=== PATIENT | female | born 1980 | race Caucasian/White ===

== ENCOUNTER 2017-09-05 12:38 | Emergency (ER) | payer OTHER, MEDICAID ==
[~2017-09-05] VITALS: Ht 165.1 cm; Wt 127.0 kg
[~2017-09-05 12:38] MED LIST: ACETAMINOPHEN-120 ML PO; ACETAMINOPHEN325 M1 PO; ALBUTEROL INH; ALBUTEROL INHAL17 GM IH; AZITHROMYCIN 2250 MG PO; CIPROFLOXACIN500 M1 PO; CLARITIN10 M2 PO; CLARITIN10 MG PO; FLONASE 0.05%50 MCG; IBUPROFEN 800800 M1 PO; MEDROLDOSEPACK PO; NOHOMEMEDICATIONS; NORCO 5-325 TA1 EAC1 PO; NORCO 5-325 TA1 EACH PO; PERCOCET 7.5-31 EACH PO; PHENERGAN-CODE120 ML PO; PREDNISONE 20 M20 M1 PO; PRENATAL; PROAIR HFA8.5 GM IH; TESSALON200 MG PO; TRAMADOL 50 MG50 MG PO; TYLENOL325 MG PO; VENTOLIN HFA 1818 GM INH; VENTOLIN17 GM INH; ZOFRAN ODT4 MG PO; ZPAK PO; [UNRECOGNIZED DRUG - OTHER] PO
[2017-09-05] MEDS ORDERED: NEURONTIN 300300 M1 PO (12:54)
[2017-09-05] MEDS ORDERED: LOMAIRA8 MG PO (12:54)
[2017-09-05] MEDS ORDERED: KEFLEX500 M1 PO (13:09)
[2017-09-05 13:34] VITALS: BP 148/76
== END 2017-09-05 13:35 | disposition home or self-care (01) ==
LOC: M.ERS 12:38
DX: L03.012 Cellulitis of left finger (principal); F10.99 Alcohol use, unspecified with unspecified alcohol-induced disorder; J45.909 Unspecified asthma, uncomplicated; Z88.8 Allergy status to other drugs, medicaments and biological substances; Z91.040 Latex allergy status; Z88.5 Allergy status to narcotic agent; Z90.49 Acquired absence of other specified parts of digestive tract

== ENCOUNTER 2019-02-21 19:57 | Emergency (ER) | payer OTHER, MEDICAID ==
[~2019-02-21] VITALS: Ht 165.1 cm; Wt 138.8 kg
[~2019-02-21 19:57] MED LIST changes: +KEFLEX500 M1 PO; +LOMAIRA8 MG PO; +NEURONTIN 300300 M1 PO
[2019-02-21] MEDS ORDERED: PREDNISONE 20 M20 M1 PO (20:16)
[2019-02-21] MEDS ORDERED: ZPAK PO (20:16)
[2019-02-21 20:30] VITALS: BP 128/83
== END 2019-02-21 20:45 | disposition home or self-care (01) ==
LOC: M.ERS 19:57
DX: J45.901 Unspecified asthma with (acute) exacerbation (principal); N80.9 Endometriosis, unspecified; J06.9 Acute upper respiratory infection, unspecified; Z90.49 Acquired absence of other specified parts of digestive tract; Z91.040 Latex allergy status; Z88.5 Allergy status to narcotic agent; Z91.018 Allergy to other foods

== ENCOUNTER → 2021-10-12 | Emergency (ER) | payer OTHER, MEDICAID ==
[~2021-10-12] VITALS: Ht 165.1 cm; Wt 127.0 kg
[~2021-10-12] MED LIST changes: +PREDNISONE50 MG PO; +TESSALON PERLE100 MG PO
[2021-10-12 10:55] VITALS: BP 162/86
== END ==
LOC: M.ERS 09:30
DX: J06.9 Acute upper respiratory infection, unspecified (principal); J45.909 Unspecified asthma, uncomplicated; Z90.49 Acquired absence of other specified parts of digestive tract; Z91.040 Latex allergy status; Z88.5 Allergy status to narcotic agent; Z91.018 Allergy to other foods